=== PATIENT | male | born 1960 | race Caucasian/White ===

== ENCOUNTER 2019-04-05 23:32 | Emergency (ER) | payer MEDICAID ==
[~2019-04-05] VITALS: Ht 190.5 cm; Wt 99.8 kg
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
[2019-04-05 23:39] VITALS: BP 142/84
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
[2019-04-06 00:15] VITALS: BP 142/84
--- NOTE | 2019-04-06 00:15 | NUR ---
ER DISCHARGE NOTE: Patient is cleared to be discharged per ERMD, pt is aox4, on room air, with stable vital signs. pt was given dc and prescription instructions, pt was able to verbalize understanding, pt id band REMOVED. pt is able to ambulate with steady gait. pt took all belongings.
--- NOTE | 2019-04-08 14:01 | Cardiology Report ---
APPROVED REPORT EKG Measurement Heart [id number] Normal sinus rhythm Biatrial enlargement Rightward axis Abnormal ECG
== END 2019-04-06 00:15 | disposition home or self-care (01) ==
LOC: EDBD 23:32 → EMR 23:45
DX: F43.9 Reaction to severe stress, unspecified (principal); R07.9 Chest pain, unspecified; I48.0 Paroxysmal atrial fibrillation
CPT/HCPCS: 93005; Z7502; 99282